=== PATIENT | male | born 1970 | race Two or more races ===

== ENCOUNTER 2019-04-16 19:24 | Emergency (ER) | payer OTHER ==
[~2019-04-16] VITALS: Ht 177.8 cm; Wt 86.2 kg
[~2019-04-16 19:24] MED LIST: TRAMADOL HCL-AP1 TAB PO
[2019-04-16] MEDS ORDERED: VITAMIN C60 MG (19:45)
[2019-04-16] MEDS ORDERED: TRIUMEQ TABLET1 EACH (19:45)
[2019-04-16] MEDS ORDERED: VITAMIN D400 UNI2 (19:46)
[2019-04-16] MEDS ORDERED: SINGULAIR4 MG (19:46)
[2019-04-16] MEDS ORDERED: CLARITIN5 MG (19:46)
== END 2019-04-17 00:15 | disposition home or self-care (01) ==
LOC: ER 19:24
DX: B34.9 Viral infection, unspecified (principal)

== ENCOUNTER 2019-05-21 19:54 | Emergency (ER) | payer OTHER ==
[~2019-05-21] VITALS: Ht 180.3 cm; Wt 86.2 kg
[~2019-05-21 19:54] MED LIST changes: +CLARITIN5 MG; +SINGULAIR4 MG; +TRIUMEQ TABLET1 EACH; +VITAMIN C60 MG; +VITAMIN D400 UNI2
== END 2019-05-21 22:40 | disposition home or self-care (01) ==
LOC: ER 19:54
DX: M54.5 Low back pain (principal)

== ENCOUNTER 2019-08-12 14:07 | Emergency (ER) | payer OTHER ==
[~2019-08-12] VITALS: Ht 177.8 cm; Wt 81.6 kg
== END 2019-08-12 20:42 | disposition home or self-care (01) ==
LOC: ER 14:07
DX: J45.998 Other asthma (principal); B20 Human immunodeficiency virus [HIV] disease

== ENCOUNTER 2020-01-26 11:28 | Emergency (ER) | payer OTHER ==
[~2020-01-26] VITALS: Ht 180.3 cm; Wt 86.2 kg
== END 2020-01-26 15:23 | disposition home or self-care (01) ==
LOC: ER 11:28
DX: B34.9 Viral infection, unspecified (principal)

== ENCOUNTER 2022-02-03 17:20 | Emergency (ER) | payer OTHER ==
[~2022-02-03] VITALS: Ht 177.8 cm; Wt 86.2 kg
[2022-02-03] MEDS ORDERED: ALL DAY ALLERGY10 M3 (17:32)
[2022-02-03] MEDS ORDERED: BIKTARVY 50-201 EACH (17:32)
[2022-02-03] MEDS ORDERED: CIPRO500 MG PO (21:27)
[2022-02-03] MEDS ORDERED: PEPCID AC20 MG PO (21:27)
== END 2022-02-03 21:32 | disposition home or self-care (01) ==
LOC: ER 17:20
DX: R19.7 Diarrhea, unspecified (principal)

== ENCOUNTER 2025-01-16 11:44 | Emergency (ER) | payer OTHER ==
[~2025-01-16] VITALS: Ht 180.3 cm; Wt 88.5 kg
[~2025-01-16 11:44] MED LIST changes: +ALL DAY ALLERGY10 M3; +BIKTARVY 50-201 EACH; +CIPRO500 MG PO; +PEPCID AC20 MG PO
[2025-01-16] MEDS ORDERED: ORPHENADRINE CITRATE 30 MG/ML AMPUL IV STA (12:28)
[2025-01-16] MEDS ORDERED: KETOROLAC TROMETHAMINE 30 MG VIAL IV STA (12:29)
[2025-01-16] MEDS ORDERED: KETOROLAC TROMETHAMINE 30 MG VIAL ONE (12:34)
[2025-01-16] MEDS ORDERED: ORPHENADRINE CITRATE 30 MG/ML AMPUL ONE (12:34)
[2025-01-16] MEDS ORDERED: DEXAMETHASONE SODIUM PHOSPHATE 4 MG/ML VIAL IV STA (13:45)
[2025-01-16] MEDS ORDERED: DEXAMETHASONE SODIUM PHOSPHATE 4 MG/ML VIAL ONE (13:48)
== END 2025-01-16 14:39 | disposition home or self-care (01) ==
LOC: ER 11:47
DX: M51.26 Other intervertebral disc displacement, lumbar region (principal); Z88.0 Allergy status to penicillin; Z88.6 Allergy status to analgesic agent

== ENCOUNTER 2025-02-13 18:38 | Emergency (ER) | payer OTHER ==
[~2025-02-13] VITALS: Ht 177.8 cm; Wt 90.7 kg
[2025-02-13] MEDS ORDERED: BIKTARVY 50-201 EACH PO (19:07)
[2025-02-13] MEDS ORDERED: KETOROLAC TROMETHAMINE 30 MG VIAL ONE (22:15)
[2025-02-13] MEDS ORDERED: KETOROLAC TROMETHAMINE 30 MG VIAL IV ONE (22:15)
[2025-02-13] MEDS ORDERED: CLINDAMYCIN PHOSPHATE 150 MG/ML (600mg) IV ONE (22:15)
[2025-02-13] MEDS ORDERED: CLINDAMYCIN PHOSPHATE 150 MG/ML (300mg) ONE (22:15)
[2025-02-13 23:05] LABS: HEMATOCRIT 42.4 % (39.0-48.0); HEMOGLOBIN 14.8 g/dL (13-16.00); MEAN CELL VOLUME 97.5 fL (80.0-100.00); MEAN CORPUSCULAR HGB CONC 34.9 g/dl (32.0-36.0); PLATELET COUNT 269 K/uL (150-450); RED BLOOD COUNT 4.35 M/uL (4.00-6.00); RED CELL DISTRIBUTION WIDTH 14.4 % (11.5-14.5)
[2025-02-13 23:26] LABS: ERYTHROCYTE SEDIMENTATION RATE 32 mm/hr
[2025-02-13 23:27] LABS: ALBUMIN 3.6 gm/dL (3.4-5.0); BILIRUBIN TOTAL 0.3 mg/dL (0.3-1.2); CALCIUM 8.9 mg/dL (8.5-10.1); GFR 71.52; POTASSIUM 4.24 mEq/L (3.5-5.1); TOTAL PROTEIN 6.6 gm/dL (6.4-8.2)
[2025-02-13 23:32] LABS: CREATININE SERUM 1.08 mg/dL (0.70-1.30)
[2025-02-13] MEDS ORDERED: CLEOCIN HCL300 MG PO (23:45)
[2025-02-13] MEDS ORDERED: INTESTINEX680 M1 PO (23:45)
[2025-02-13] MEDS ORDERED: 8 HOUR650 MG PO (23:45)
== END 2025-02-14 00:12 | disposition home or self-care (01) ==
LOC: ER 18:39
PROVIDERS: Preventive Medicine Public Health & General Preventive Medicine
DX: L02.212 Cutaneous abscess of back [any part, except buttock and flank] (principal); Z88.0 Allergy status to penicillin; Z88.2 Allergy status to sulfonamides; Z87.09 Personal history of other diseases of the respiratory system; B20 Human immunodeficiency virus [HIV] disease